=== PATIENT | male | born 1980 | race Caucasian/White ===

== ENCOUNTER 2021-06-19 18:15 | Emergency (ER) | payer SELFPAY ==
[~2021-06-19] VITALS: Ht 170.2 cm; Wt 91.0 kg
[2021-06-19] MEDS ORDERED: LORAZEPAM 2MG/ML CPJ IV ONE (20:30)
[2021-06-19 20:56] LABS: BASOPHILS % 0.4 % (0.0-2.0); HEMATOCRIT. 45.3 % (42.0-52.0); HEMOGLOBIN. 16.3 g/dL (14.0-18.0); LYMPHOCYTES % 29.7 % (20.0-50.0); MEAN CORPUSCULAR HEMOGLOBIN 32.6 pg (28.0-32.0); MEAN CORPUSCULAR VOLUME 90.5 fL (80.0-94.0); MEAN PLATELET VOLUME 7.3 fl (7.4-10.4); MONOCYTES % 7.8 % (2.0-8.0); NEUTROPHILS % 61.1 % (40.0-76.0); PLATELET 296 x1000/uL (130-400); RED BLOOD CELL COUNT 5.01 mill/uL (4.7-6.1); RED CELL DISTRIBUTION WIDTH 12.7 % (11.6-14.6)
[2021-06-19 21:07] LABS: CHLORIDE 110 mEq/L (98-107)
[2021-06-19] MEDS ORDERED: PHENOBARBITAL SODIUM 130MG/ML 1ML IV STA (21:38)
[2021-06-19] MEDS ORDERED: LORA-250 MT (23:56)
[2021-06-20 00:06] VITALS: BP 145/84
== END 2021-06-20 00:09 | disposition home or self-care (01) ==
LOC: ER 18:15
DX: F10.229 Alcohol dependence with intoxication, unspecified (principal); Y90.0 Blood alcohol level of less than 20 mg/100 ml; I10 Essential (primary) hypertension
CPT/HCPCS: 36415; 71045; 80048; 80076; 84484; 85025; 85730; 93005; 96374; 99285; J2060; J2560